=== PATIENT | male | born 1945 | race Caucasian/White ===

== ENCOUNTER 2019-11-09 12:15 | Emergency (ER) | payer MEDICARE, BC ==
[2019-11-09 12:38] VITALS: BP 156/82; PULSE 62
[2019-11-09] MEDS ORDERED: Sodium Chloride 0.9% 10 ML Syringe FLUSH PRN (13:04)
--- NOTE | 2019-11-09 13:54 | CR ---
Chest: Portable view of the chest was obtained. Comparison: No prior chest imaging is available. Findings: Heart size and mediastinum are normal. Slight atelectasis seen above the left hemidiaphragm. Small nodule noted within the right lateral costophrenic angle which is calcified on prior CT abdomen and pelvis study that showed the lung bases and dated 02/10/14. Lungs otherwise are clear. Bony structures are grossly intact. Impression: 1. Findings within both lung bases most likely incidental. 2. Nothing acute is suspected on portable chest x-ray. Diagnostic code #2 Study was dictated in [place] Standard Time
--- NOTE | 2019-11-09 14:08 | EDM.PDOC ---
<Qian Lobato - Last Filed: 11/09/19 14:01> ED HPI GENERAL MEDICAL PROBLEM - General Chief Complaint: Chest Pain Stated Complaint: CHEST PAIN Time Seen by Provider: 11/09/19 12:30 Source of Information: Reports: Patient History Limitations: Reports: No Limitations - History of Present Illness INITIAL COMMENTS - FREE TEXT/NARRATIVE: Patient is a pleasant 74-year-old gentleman with a complex cardiac history including a previous FL and two stents placed in 1998 and 2003, presents to the ED today after he experienced central chest and bilateral side pain that started late this morning while he was sitting searching for books. He states he was not doing any strenuous activity or anything that normally precipitates chest pain. After onset of chest pain, patient states he took one Nitro tablet, the pain had not resolved after five minutes so he took another Nitro tablet. The second tablet still had not relieved the pain, so he took a third Nitro tablet. After the third tablet the pain had completely resolved and reports he has not had another episode of chest pain. He denies shortness of breath, nausea, and vomiting with chest pain. Of note, patient stated he did have to take two Nitro tablets a couple days ago for similar chest pain, and prior to that he had not taken a Nitro tablet for months. He reports that when he develops chest pain, usually one or two tablets of Nitro will relieve the pain, however this time it took three tablets. Olivia HARLEY is who he sees for cardiology and his primary care doctor is Dr. Brar. Onset: Today, Sudden Duration: Minutes:, Resolved Prior to Arrival Location: Reports: Chest Quality: Reports: Sharp Severity: Mild Treatments ORDER EDITOR: Reports: Nitroglycerin Mid-Sternal Chest Pain Score (Numeric/FACES): 2 - Related Data Allergies Allergy/AdvReac Type Severity Reaction Status Date / Time oxycodone Allergy Rash Verified 11/09/19 12:29 sulfacetamide Allergy Hives Verified 11/09/19 12:29 Home Meds: Home Meds Aspirin [Halfprin] 81 mg PO DAILY 02/15/15 [History] Metoprolol Succinate [Toprol XL] 100 mg PO DAILY 02/15/15 [History] Nitroglycerin [Nitrostat] 0.4 mg SL ASDIRECTED PRN 02/15/15 [History] atorvaSTATin [Lipitor] 80 mg PO BEDTIME 02/15/15 [History] Calcium Carbonate [Tums] 500 mg PO DAILY PRN 11/09/19 [History] Losartan/Hydrochlorothiazide [Losartan-HCTZ 50-12.5 MG] 50 mg PO DAILY 11/09/19 [History] Ubidecarenone [Coq-10] 100 mg PO DAILY 11/09/19 [History] Past Medical History HEENT History: Reports: Cataract, Impaired Vision Cardiovascular History: Reports: Angina, High Cholesterol, Hypertension, [place], Stents Gastrointestinal History: Reports: GERD Other Gastrointestinal History: Aortic aneurysm - Infectious Disease History Infectious Disease History: Reports: Chicken Pox, Measles, Mumps - Past Surgical History HEENT Surgical History: Reports: Cataract Surgery GI Surgical History: Reports: Colonoscopy, Polypectomy Social & Family History - Tobacco Use Smoking Status *Q: Former Smoker Used Tobacco, but Quit: Yes Month/Year Tobacco Last Used: 1999 - Caffeine Use Caffeine Use: Reports: Coffee - Recreational Drug Use Recreational Drug Use: No ED ROS GENERAL - Review of Systems Review Of Systems: See Below Constitutional: Reports: No Symptoms. Denies: Fever, Chills, Weakness HEENT: Reports: No Symptoms. Denies: Vertigo, Vision Change Respiratory: Reports: No Symptoms. Denies: Shortness of Breath, Wheezing, Cough Cardiovascular: Reports: Chest Pain (central and bilateral side pain- resolved with three nitro tablets prior to arrival). Denies: Edema, Lightheadedness, Syncope GI/Abdominal: Reports: No Symptoms. Denies: Nausea, Vomiting Musculoskeletal: Reports: No Symptoms. Denies: Neck Pain, Shoulder Pain, Back Pain, Muscle Pain Skin: Reports: No Symptoms. Denies: Pallor, Rash Neurological: Reports: No Symptoms. Denies: Dizziness, Headache, Numbness, Syncope, Tingling Psychiatric: Reports: No Symptoms ED EXAM, GENERAL - Physical Exam Exam: See Below Exam Limited By: No Limitations General Appearance: Alert, WD/WN, No Apparent Distress Head: Atraumatic, Normocephalic Neck: Normal Inspection, Supple, Non-Tender, Full Range of Motion Respiratory/Chest: No Respiratory Distress, Lungs Clear, Normal Breath Sounds, No Accessory Muscle Use, Chest Non-Tender Cardiovascular: Normal Peripheral Pulses, Regular Rate, Rhythm, No Edema, No Murmur GI/Abdominal: Normal Bowel Sounds, Soft, Non-Tender, No Organomegaly, No Distention, No Mass Back Exam: Normal Inspection, Full Range of Motion Extremities: Normal Inspection, Normal Range of Motion, Non-Tender, No Pedal Edema, Normal Capillary Refill Neurological: Alert, Oriented, Normal Cognition, No Motor/Sensory Deficits Psychiatric: Normal Affect, Normal Mood Skin Exam: Warm, Dry, Intact, Normal Color, No Rash Course - Vital Signs Last Recorded V/S: Last Vital Signs Temp 97.3 F 11/09/19 12:29 Pulse 62 11/09/19 12:29 Resp 16 11/09/19 12:29 BP 156/82 H 11/09/19 12:29 Pulse Ox 95 11/09/19 12:29 - Orders/Labs/Meds Labs: Laboratory Tests 11/09/19 11/09/19 11/09/19 Range/Units 14:07 14:07 15:56 WBC 6.14 (4.23-9.07) K/mm3 RBC 4.38 L (4.63-6.08) M/mm3 Hgb 14.5 (13.7-17.5) gm/dl Hct 41.4 (40.1-51.0) % MCV 94.5 H (79.0-92.2) fl MCH 33.1 H (25.7-32.2) pg MCHC 35.0 (32.2-35.5) g/dl RDW Std Deviation 41.9 (35.1-43.9) fL Plt Count 187 (163-337) K/mm3 MPV 10.0 (9.4-12.3) fl Neut % (Auto) 67.1 (34.0-67.9) % Lymph % (Auto) 16.8 L (21.8-53.1) % [place] % (Auto) 12.4 H (5.3-12.2) % Eos % (Auto) 2.9 (0.8-7.0) Baso % (Auto) 0.3 (0.1-1.2) % Neut # (Auto) 4.12 (1.78-5.38) K/mm3 Lymph # (Auto) 1.03 L (1.32-3.57) K/mm3 [place] # (Auto) 0.76 (0.30-0.82) K/mm3 Eos # (Auto) 0.18 (0.04-0.54) K/mm3 Baso # (Auto) 0.02 (0.01-0.08) K/mm3 Sodium 143 (136-145) mEq/L Potassium 3.8 (3.5-5.1) mEq/L Chloride 104 (98-107) mEq/L Carbon Dioxide 28 (21-32) mEq/L Anion Gap 14.8 (5-15) BUN 26 H (7-18) mg/dL Creatinine 1.1 (0.7-1.3) mg/dL Est Cr Clr Drug Dosing 58.99 mL/min Estimated GFR (MDRD) > 60 (>60) mL/min BUN/Creatinine Ratio 23.6 H (14-18) Glucose 112 (83-115) mg/dL Calcium 10.5 H (8.5-10.1) mg/dL Total Bilirubin 0.4 (0.2-1.0) mg/dL AST 24 (15-37) U/L ALT 47 (16-63) U/L Alkaline Phosphatase 109 (46-116) U/L Troponin I < 0.017 < 0.017 (0.00-0.056) ng/mL Total Protein 6.9 (6.4-8.2) g/dl Albumin 3.8 (3.4-5.0) g/dl Globulin 3.1 gm/dL Albumin/Globulin Ratio 1.2 (1-2) Meds: Medications Discontinued Medications Generic Name Dose Route Start Last Admin Trade Name Freq PRN Reason Stop Dose Admin Sodium Chloride 10 ml 11/09/19 13:04 Saline Flush FLUSH ASDIRECTED PRN Keep Vein Open Departure - Departure Disposition: Home, Self-Care 01 Clinical Impression: Atypical chest pain Instructions: Chest Wall Pain Referrals: Segundo Fang MD [Primary Care Provider] - Forms: ED Department Discharge Additional Instructions: Continue current medications, call your First Aid Instructor's office in the morning, let them know you have had chest pain twice in the past 3 days and that your workup here in the ED this evening was normal. Also consider follow-up with Dr. Brar in about one week. Return to ED as discussed if symptoms worsening in any way. Sepsis Event Note - Evaluation Sepsis Screening Result: No Definite Risk - Focused Exam Date Exam was Performed: 11/09/19 Time Exam was Performed: 14:01 <Matt Jones - Last Filed: 11/11/19 10:05> Course - Re-Assessments/Exams Free Text/Narrative Re-Assessment/Exam: 11/11/19 10:03 Initial hx and exam was done by Mary Herrera, INTEGRATED CIRCUIT DESIGN ENGINEER student. I agree with her history and exam as documented. I have also examined and interviewed patient. He is totally pain-free at time of our exam and remained pain-free while here in the emergency department. Initial troponin did come back negative, chest x-ray was normal.Troponin and other labs all relatively normal. He remained in sinus rhythm while here in the ED, no ectopy.Discharge instructions as documented. Departure - Departure Time of Disposition: 16:43 Condition: Fair Sepsis Event Note - Focused Exam Date Exam was Performed: 11/11/19 Time Exam was Performed: 10:03
== END 2019-11-09 16:52 | disposition home or self-care (01) ==
LOC: JD.ED 12:15
DX: R07.89 Other chest pain (principal); I10 Essential (primary) hypertension; E78.00 Pure hypercholesterolemia, unspecified; I25.2 Old myocardial infarction; K21.9 Gastro-esophageal reflux disease without esophagitis; Z79.82 Long term (current) use of aspirin; Z79.899 Other long term (current) drug therapy; Z88.6 Allergy status to analgesic agent; Z88.2 Allergy status to sulfonamides
CPT/HCPCS: 36415; 71045; 71045-26; 80053; 84484; 85025; 93005; 93010; 99284; 99285-25

== ENCOUNTER 2020-01-29 11:16 | Emergency (ER) | payer MEDICARE, BC ==
[2020-01-29] MEDS ORDERED: Sodium Chloride 0.9% 10 ML Syringe FLUSH PRN (11:21)
[2020-01-29] MEDS ORDERED: Nitroglycerin 0.4 MG Tab.SL SL PRN (11:21)
[2020-01-29] MEDS ORDERED: Aspirin 81 MG Tab.Chew PO ONE (11:21)
[2020-01-29] MEDS ORDERED: Tenecteplase 50 MG Kit ONE (11:25)
[2020-01-29] MEDS ORDERED: Heparin Sodium 5,000 Units/ML Vial IVPUSH ONE (11:25)
[2020-01-29] MEDS ORDERED: Tenecteplase 50 MG Kit IV ONE (11:25)
[2020-01-29] MEDS ORDERED: Heparin Sodium/D5W 25,000 UNITS/500 ML BAG IV SCH (11:30)
[2020-01-29] MEDS ORDERED: Morphine 2 MG/ML SYRINGE IVPUSH ONE (11:31)
[2020-01-29] MEDS ORDERED: Heparin Sodium/D5W 500 ML ONE (11:34)
--- NOTE | 2020-01-29 11:43 | EDM.PDOC ---
ED HPI GENERAL MEDICAL PROBLEM - General Chief Complaint: Chest Pain Stated Complaint: CHEST PAIN AND SWEATING Time Seen by Provider: 01/29/20 11:18 Source of Information: Reports: Patient History Limitations: Reports: No Limitations - History of Present Illness INITIAL COMMENTS - FREE TEXT/NARRATIVE: The patient presents with chest pain and shortness of breath. He has a history of an CT and stents in November. He has been doing good until now. He was out trimming some trees when this started. He has no fever, chills, cough, abdominal pain, nausea or vomiting. Onset: Sudden Duration: Minutes: Location: Reports: Chest Quality: Reports: Pressure Severity: Moderate Improves with: Reports: None Worsens with: Reports: None Associated Symptoms: Reports: Chest Pain, Shortness of Breath. Denies: Cough, Fever/Chills, Headaches, Nausea/Vomiting - Related Data Allergies Allergy/AdvReac Type Severity Reaction Status Date / Time oxycodone Allergy Rash Verified 11/09/19 12:29 sulfacetamide Allergy Hives Verified 11/09/19 12:29 Home Meds: Home Meds Aspirin [Halfprin] 81 mg PO DAILY 02/15/15 [History] Metoprolol Succinate [Toprol XL] 100 mg PO DAILY 02/15/15 [History] Nitroglycerin [Nitrostat] 0.4 mg SL ASDIRECTED PRN 02/15/15 [History] atorvaSTATin [Lipitor] 80 mg PO BEDTIME 02/15/15 [History] Calcium Carbonate [Tums] 500 mg PO DAILY PRN 11/09/19 [History] Losartan/Hydrochlorothiazide [Losartan-HCTZ 50-12.5 MG] 50 mg PO DAILY 11/09/19 [History] Ubidecarenone [Coq-10] 100 mg PO DAILY 11/09/19 [History] Past Medical History HEENT History: Reports: Cataract, Impaired Vision Cardiovascular History: Reports: Angina, High Cholesterol, Hypertension, CT, Stents Gastrointestinal History: Reports: GERD Other Gastrointestinal History: Aortic aneurysm - Infectious Disease History Infectious Disease History: Reports: Chicken Pox, Measles, Mumps - Past Surgical History HEENT Surgical History: Reports: Cataract Surgery GI Surgical History: Reports: Colonoscopy, Polypectomy Social & Family History - Caffeine Use Caffeine Use: Reports: Coffee ED ROS GENERAL - Review of Systems Review Of Systems: See Below Constitutional: Reports: No Symptoms HEENT: Reports: No Symptoms Respiratory: Reports: Shortness of Breath Cardiovascular: Reports: Chest Pain Endocrine: Reports: No Symptoms GI/Abdominal: Reports: No Symptoms : Reports: No Symptoms Musculoskeletal: Reports: No Symptoms ED EXAM, GENERAL - Physical Exam Exam: See Below Exam Limited By: No Limitations General Appearance: Alert, No Apparent Distress Ears: Normal External Exam Nose: Normal Inspection Head: Atraumatic, Normocephalic Neck: Normal Inspection Respiratory/Chest: No Respiratory Distress, Lungs Clear, Normal Breath Sounds Cardiovascular: Regular Rate, Rhythm, No Edema, No Murmur GI/Abdominal: Soft, Non-Tender, No Organomegaly, No Mass Extremities: Normal Inspection EKG INTERPRETATION EKG Date: 01/29/20 Time: 11:19 Rhythm: Other (Junctional rhythm) Rate (Beats/Min): 46 [place]: Normal P-Wave: Absent QRS: Normal ST-T: Elevated (inferior and lateral leads) QT: Normal Course - Orders/Labs/Meds Orders: Active Orders 24 hr Category Date Time Status Cardiac Monitoring [RC] . DIRECTED Care 01/29/20 11:21 Active EKG Documentation Completion [RC] STAT Care 01/29/20 11:23 Active Peripheral IV Care [RC] . DIRECTED Care 01/29/20 11:23 Active Chest 1V Frontal [CR] Stat Exams 01/29/20 11:23 Ordered CBC WITH AUTO DIFF [HEME] Stat Lab 01/29/20 11:10 Received COMPREHENSIVE METABOLIC PN,CMP [CHEM] Stat Lab 01/29/20 11:10 Received PTT,PARTIAL THROMBOPLSTIN TIME [COAG] Stat Lab 01/29/20 11:10 Received TROPONIN I [CHEM] Stat Lab 01/29/20 11:10 Received Heparin Sodium/D5W [Heparin 25,000 Units in D5W 500 ML] Med 01/29/20 11:30 Active 25,000 units in 500 ml IV TITRATE Sodium Chloride 0.9% [Saline Flush] Med 01/29/20 11:21 Active 10 ml FLUSH ASDIRECTED PRN Peripheral IV Insertion Adult [OM.PC] Stat Oth 01/29/20 11:21 Ordered Medication Orders Heparin Sodium/Dextrose (Heparin 25,000 Units In D5w 500 Ml) 25,000 units in 500 mls @ 19.051 mls/hr IV TITRATE KYM; Protocol Sodium Chloride (Saline Flush) 10 ml FLUSH ASDIRECTED PRN PRN Reason: Keep Vein Open Meds: Medications Generic Name Dose Route Start Last Admin Trade Name Frekrystal PRN Reason Stop Dose Admin Heparin Sodium/Dextrose 25,000 units in 500 mls @ 19.051 mls/hr 01/29/20 11: 30 Heparin 25,000 Units In D5w 500 Ml IV TITRATE KYM Protocol 10 UNITS/KG/HR Sodium Chloride 10 ml 01/29/20 11:21 Saline Flush FLUSH ASDIRECTED PRN Keep Vein Open Discontinued Medications Generic Name Dose Route Start Last Admin Trade Name Freq PRN Reason Stop Dose Admin Aspirin 324 mg 01/29/20 11:21 Aspirin PO 01/29/20 11:22 ONETIME ONE Heparin Sodium (Porcine) 5,000 units 01/29/20 11:25 Heparin Sodium IVPUSH 01/29/20 11:26 .BOLUS ONE Heparin Sodium/Dextrose Confirm 01/29/20 11:34 Heparin 25,000 Units In D5w 500 Ml Administered 01/29/20 11:35 Dose 500 mls @ as directed .ROUTE .STK-MED ONE Morphine Sulfate 2 mg 01/29/20 11:31 Morphine IVPUSH 01/29/20 11:32 ONETIME ONE Nitroglycerin 0.4 mg 01/29/20 11:21 Nitrostat SL 01/30/20 11:22 Q5M PRN Chest Pain Tenecteplase 50 mg 01/29/20 11:25 Tnkase IV 01/29/20 11:26 ONETIME ONE Protocol Tenecteplase Confirm 01/29/20 11:25 Tnkase Administered 01/29/20 11:26 Dose 50 mg .ROUTE .STK-MED ONE - Re-Assessments/Exams Free Text/Narrative Re-Assessment/Exam: 01/29/20 11:42 I went into the room with my nursed when he arrived. I ordered an EKG, CXR, labs, aspirin and nitro. His EKG shows a STEMI in the inferior posterior leads. I ordered TNKase. I also ordered a heparin drip and bolus. I called [facility] in [place] and talked with the hair mixer telephone station installer Dr Barker and she accepted the patient. Departure - Departure Time of Disposition: 11:45 Disposition: DC/Tfer to Acute Hospital 02 Reason for Transfer *Q: Primary PCI Indicated Condition: Serious Clinical Impression: STEMI (ST elevation myocardial infarction) Qualifiers: Involved coronary artery: other coronary artery Qualified Code(s): I21.29 - ST elevation (STEMI) myocardial infarction involving other sites Referrals: Segundo Fang MD [Primary Care Provider] - - My Orders Last 24 Hours: My Active Orders 01/29/20 11:10 CBC WITH AUTO DIFF [HEME] Stat COMPREHENSIVE METABOLIC PN,CMP [CHEM] Stat PTT,PARTIAL THROMBOPLSTIN TIME [COAG] Stat TROPONIN I [CHEM] Stat 01/29/20 11:21 Cardiac Monitoring [RC] . DIRECTED Sodium Chloride 0.9% [Saline Flush] 10 ml FLUSH ASDIRECTED PRN Peripheral IV Insertion Adult [OM.PC] Stat 01/29/20 11:23 EKG Documentation Completion [RC] STAT Peripheral IV Care [RC] . DIRECTED Chest 1V Frontal [CR] Stat 01/29/20 11:30 Heparin Sodium/D5W [Heparin 25,000 Units in D5W 500 ML] 25,000 units in 500 ml IV TITRATE - Assessment/Plan Last 24 Hours: My Active Orders 01/29/20 11:10 CBC WITH AUTO DIFF [HEME] Stat COMPREHENSIVE METABOLIC PN,CMP [CHEM] Stat PTT,PARTIAL THROMBOPLSTIN TIME [COAG] Stat TROPONIN I [CHEM] Stat 01/29/20 11:21 Cardiac Monitoring [RC] . DIRECTED Sodium Chloride 0.9% [Saline Flush] 10 ml FLUSH ASDIRECTED PRN Peripheral IV Insertion Adult [OM.PC] Stat 01/29/20 11:23 EKG Documentation Completion [RC] STAT Peripheral IV Care [RC] . DIRECTED Chest 1V Frontal [CR] Stat 01/29/20 11:30 Heparin Sodium/D5W [Heparin 25,000 Units in D5W 500 ML] 25,000 units in 500 ml IV TITRATE
[2020-01-29 16:07] VITALS: PULSE 45
[2020-01-29 16:15] VITALS: BP 147/67
--- NOTE | 2020-01-30 11:08 | CR ---
Chest: Portable view of the chest was obtained. Comparison: Prior chest x-ray of 11/09/19. Heart size and mediastinum are normal. Lungs are clear with no acute parenchymal change. Bony structures are grossly intact. Impression: 1. Nothing acute is seen on portable chest x-ray. Diagnostic code #1 This report was dictated in MDT
== END 2020-01-29 12:00 ==
LOC: JD.ED 11:16
DX: I21.29 ST elevation (STEMI) myocardial infarction involving other sites (principal); E78.00 Pure hypercholesterolemia, unspecified; I10 Essential (primary) hypertension; I25.2 Old myocardial infarction; Z95.5 Presence of coronary angioplasty implant and graft; Z88.2 Allergy status to sulfonamides; Z88.5 Allergy status to narcotic agent; Z79.82 Long term (current) use of aspirin; Z79.899 Other long term (current) drug therapy
CPT/HCPCS: 36415; 71045; 80053; 84484; 85025; 85730; 93005; 96365; 96375; 99285; A9270; J1644; J2270; J3101; 93010

== ENCOUNTER 2024-01-31 12:22 | Emergency (ER) | payer MEDICARE, BC ==
[2024-01-31] MEDS: Sodium Chloride 0.9% 10 ML Syringe FLUSH PRN (13:29)
[2024-01-31 13:31] LABS: BASOPHILS PERCENT AUTO 0.2 % (0.0-1.0); EOSINOPHILS ABSOLUTE AUTO 0.1 K/mm3 (0.0-0.4); HEMATOCRIT 41.8 % (42.0-52.0); HEMOGLOBIN 15.1 gm/dl (14.0-18.0); IMMATURE GRAN ABSOLUTE AUTO 0.04 K/mm3 (0.00-0.05); IMMATURE GRAN PERCENT AUTO 0.4 % (0.0-0.4); LYMPHOCYTES ABSOLUTE AUTO 0.9 K/mm3 (1.0-4.8); LYMPHOCYTES PERCENT AUTO 8.8 % (24.0-44.0); MEAN CORPUSCULAR HEMOGLOBIN 34.1 pg (28.0-32.0); MEAN CORPUSCULAR HGB CONC 36.1 g/dl (32.0-36.0); MEAN CORPUSCULAR VOLUME 94.4 fl (83.0-99.0); MEAN PLATELET VOLUME 9.8 fl (9.4-12.4); MONOCYTES ABSOLUTE AUTO 0.5 K/mm3 (0.0-0.8); MONOCYTES PERCENT AUTO 5.6 % (0.0-8.0); NEUTROPHILS ABSOLUTE AUTO 8.2 K/mm3 (1.8-7.7); PLATELET COUNT,PLT 159 K/mm3 (150-400); RED BLOOD CELL COUNT 4.43 M/mm3 (4.52-5.90); WHITE BLOOD CELL COUNT,WBC 9.71 K/mm3 (3.9-11.3)
[2024-01-31] MEDS: HYDROmorphone 0.5 MG/0.5 ML Syringe IVPUSH ONE (13:36)
[2024-01-31 13:51] LABS: A/G RATIO 1.4 (1-2); ALBUMIN 4.1 g/dl (3.4-5.0); ANION GAP 16.8 (5-15); BILIRUBIN TOTAL 0.6 mg/dL (0.2-1.0); BUN/CREATININE RATIO 24.3 (14-18); C-REACTIVE PROTEIN 0.05 mg/dL (<0.30); CALCIUM 10.6 mg/dL (8.5-10.1); CREATININE 1.4 mg/dL (0.7-1.3); EST CRCL DRUG DOSING (CG) 43.45 mL/min; MAGNESIUM 1.5 mg/dL (1.8-2.4); POTASSIUM,K 3.8 mEq/L (3.5-5.1); PROTEIN TOTAL,TP 7.1 g/dl (6.4-8.2)
[2024-01-31] MEDS: Iopamidol 612 MG/ML 30 ML SDV IVPUSH ONE (14:06)
[2024-01-31] MEDS: Ondansetron 4 MG/2 ML SDV IVPUSH ONE (14:27)
[2024-01-31] MEDS: Sodium Chloride 0.9% 1,000 ML IV SCH (14:27)
[2024-01-31] MEDS: Magnesium Sulfate/Water 4 GM in Premix Bag 1 BAG IV ONE (14:29)
[2024-01-31] MEDS: Ketorolac 30 MG/ML SDV IVPUSH ONE (14:55)
[2024-01-31] MEDS: Tamsulosin 0.4 MG Cap.ER PO ONE (15:51)
[2024-01-31 17:40] LABS: APPEARANCE,URINE CLEAR (Clear); BILIRUBIN,URINE NEGATIVE (Negative); COLOR,URINE YELLOW (Yellow); GLUCOSE,URINE NEGATIVE (Negative); KETONES,URINE NEGATIVE (Negative); LEUKOCYTE ESTERASE,URINE NEGATIVE (Negative); NITRITE,URINE NEGATIVE (Negative); OCCULT BLOOD,URINE 2+ (Negative); PH,URINE 7.5 (5.0-8.0); PROTEIN,URINE NEGATIVE (Negative); UROBILINOGEN,URINE 0.2 (0.2-1.0)
[2024-01-31 18:19] LABS: BACTERIA,URINE FEW /hpf (FEW); MUCUS,URINE NOT SEEN /hpf (FEW); RBC,URINE 50-75 /hpf (0-5); SQUAMOUS EPITHELIAL CELLS,UR 0-5 /hpf (0-5); WBC,URINE 0-5 /hpf (0-5)
[2024-01-31 18:46] VITALS: BP 180/75; PULSE 56
== END 2024-01-31 18:33 | disposition home or self-care (01) ==
LOC: JD.ED 12:22
DX: N13.2 Hydronephrosis with renal and ureteral calculous obstruction (principal); I10 Essential (primary) hypertension; I25.2 Old myocardial infarction; E78.00 Pure hypercholesterolemia, unspecified; Z88.8 Allergy status to other drugs, medicaments and biological substances; Z88.2 Allergy status to sulfonamides; Z79.82 Long term (current) use of aspirin; Z79.899 Other long term (current) drug therapy
CPT/HCPCS: 36415; 74177; 80053; 81001; 83735; 85025; 86140; 96365; 96366; 96375; 99284; A9270; J1170; J1885; J2405; J3475; J3490; J7030; Q9967

== ENCOUNTER 2024-07-06 14:08 | Emergency (ER) | payer MEDICARE, BC ==
[2024-07-06] MEDS: Aspirin 81 MG Tab.Chew PO ONE (14:36)
[2024-07-06 14:42] LABS: BASOPHILS PERCENT AUTO 0.2 % (0.0-1.0); EOSINOPHILS ABSOLUTE AUTO 0.2 K/mm3 (0.0-0.4); EOSINOPHILS PERCENT AUTO 1.6 % (0.0-6.0); HEMATOCRIT 38.2 % (42.0-52.0); HEMOGLOBIN 13.6 gm/dl (14.0-18.0); IMMATURE GRAN ABSOLUTE AUTO 0.04 K/mm3 (0.00-0.05); IMMATURE GRAN PERCENT AUTO 0.4 % (0.0-0.4); LYMPHOCYTES ABSOLUTE AUTO 0.9 K/mm3 (1.0-4.8); LYMPHOCYTES PERCENT AUTO 9.3 % (24.0-44.0); MEAN CORPUSCULAR HEMOGLOBIN 33.7 pg (28.0-32.0); MEAN CORPUSCULAR HGB CONC 35.6 g/dl (32.0-36.0); MEAN CORPUSCULAR VOLUME 94.8 fl (83.0-99.0); MEAN PLATELET VOLUME 9.6 fl (9.4-12.4); MONOCYTES ABSOLUTE AUTO 0.7 K/mm3 (0.0-0.8); MONOCYTES PERCENT AUTO 7.4 % (0.0-8.0); NEUTROPHILS ABSOLUTE AUTO 7.6 K/mm3 (1.8-7.7); NEUTROPHILS PERCENT AUTO 81.1 % (41.0-71.0); PLATELET COUNT,PLT 163 K/mm3 (150-400); RED BLOOD CELL COUNT 4.03 M/mm3 (4.52-5.90); WHITE BLOOD CELL COUNT,WBC 9.43 K/mm3 (3.9-11.3)
[2024-07-06 15:18] LABS: CORONAVIRUS COVID-19 NAA NEGATIVE (NEGATIVE); INFLUENZA A NAA NEGATIVE (NEGATIVE); RESPIRATORY SYNCYTIAL VIR NAA NEGATIVE (NEGATIVE)
[2024-07-06 15:19] LABS: A/G RATIO 1.3 (1-2); ALBUMIN 4.1 g/dl (3.4-5.0); ANION GAP 12.9 (5-15); BILIRUBIN TOTAL 0.8 mg/dL (0.2-1.0); BUN/CREATININE RATIO 21.5 (14-18); CALCIUM 11.1 mg/dL (8.5-10.1); CREATININE 1.3 mg/dL (0.7-1.3); EST CRCL DRUG DOSING (CG) 46.01 mL/min; POTASSIUM,K 3.9 mEq/L (3.5-5.1); PROTEIN TOTAL,TP 7.2 g/dl (6.4-8.2)
[2024-07-06] MEDS: Famotidine 20 MG Tab PO ONE (17:18)
[2024-07-06] MEDS: Alum Hydrox/Mag Hydrox/Simeth 30 ML, Lidocaine 2% 15 ML PO ONE (17:19)
[2024-07-06 19:23] VITALS: BP 144/76; PULSE 55
== END 2024-07-06 19:22 | disposition home or self-care (01) ==
LOC: JD.ED 14:08
DX: R07.89 Other chest pain (principal); E83.52 Hypercalcemia; E78.00 Pure hypercholesterolemia, unspecified; I10 Essential (primary) hypertension; I25.2 Old myocardial infarction; Z95.5 Presence of coronary angioplasty implant and graft; Z79.899 Other long term (current) drug therapy; Z79.82 Long term (current) use of aspirin; Z88.2 Allergy status to sulfonamides; Z88.5 Allergy status to narcotic agent
CPT/HCPCS: 0241U; 36415; 71045; 80053; 83690; 84484; 85025; 93005; 99285; A9270